=== PATIENT | female | born 1990 | race Caucasian/White ===

== ENCOUNTER 2025-03-24 12:58 | Emergency (ER) | payer OTHER, SELFPAY ==
[2025-03-24 13:01] VITALS: BP 141/76; PULSE 82; RESP 16; TEMP 36.1; O2SAT 97; BMI 37.0
--- NOTE | 2025-03-24 13:03 | ED_ITS ---
[facility] - General Adult General Chief complaint: Arrhythmia/Palpitations Stated complaint: Heart palpitation, difficult swallowing Time Seen by Provider: 03/24/25 14:58 Source: patient Mode of arrival: ambulatory Limitations: no limitations History of Present Illness ED Provider: Dr. Giang HPI narrative: 34-year-old female no medical history presented hospital today for evaluation of palpitation that is intermittent in nature. She is also stating te she has a sensation in her throat. Patient stated that she feels as something is getting caught in her throat. She has difficulty swallowing her pills at home. However she is able to eat food and drink water without any issues. She stated that her palpitation worsens when she is turns on her left side. In the keeps her up at nighttime therefore she presents to the ER for further evaluation. Denies any recent surgery, recent travel, not on any control currently. No chest pain at this time. Related Data Previous Rx's ?Medication ?Instructions ?Recorded omeprazole 20 mg capsule,delayed 20 mg PO DAILY 14 day s #14 caps 03/24/25 release Allergies Allergy/AdvReac Type Severity Reaction Status Date / Time No Known Allergies Allergy Verified 03/24/25 13:03 Review of Systems 2 Review of Systems: Pertinent review of systems as mentioned in HPI. All other system otherwise negative. [facility] Past Medical History [facility] Narrative: Medical history as mentioned in [facility] Social History Social History Advance Directives: No Advance Directives Information Provided: No Physical Exam ED Exam Exam: General: Pleasant, no distress, interacting appropriately Head: Normacephalic, atraumatic ENT: oral mucosa moist, neck supple, no tracheal deviation, no exudate on oropharynx, no tonsillitis sign Cardiovascular: regular rate, regular rhythm, no murmurs, rubbing, gallops Respiratory: CTAB, no wheeze, rales, rhonchi Neurological: Awake and alert, no facial droop noted Skin: Warm and dry Psychiatric: Appropriate mood and thoughts Vital Signs: Vital Signs - 24 hr 03/24/25 13:01 Temperature 97.0 F Pulse Rate 82 Respiratory Rate 16 Blood Pressure 141/76 H Pulse Oximetry 97 Oxygen Delivery Method Room Air BMI result Body Mass Index 37.0 Course Course Course Narrative: This is a rapid medical exam performed by Blu Aquino NP: Additional HPI, ROS, PE not included below will be deferred to primary provider. Patient is a 34-year-old female presenting to the ED with complaint of palpitations since last night which seem to improve when she gets up and walks around. Also complaining of feeling as though it is difficulty to swallow for a few days, did not start immediately after eating. Has appt with PCP Wed. Managing secretions in triage. Plan: EKG, labs Medical Decision Making Medical Decision Making [facility] Narrative: This is a 34-year-old female presented hospital today for evaluation of foreign object in throat sensation, and intermittent palpitation I reviewed patient's EKG. No sign of STEMI no sign of cardiac arrhythmia. Patient's troponin is negative here. Lab work is unremarkable and TSH is normal. The patient is low risk with a heart score. Patient is PERC out. We will plan to discharge patient at this time. We will trial her on a short course of omeprazole. The patient does have follow up with her primary care doctor on Tuesday. Encouraged her to ask about a Holter monitor to detect cardiac arrhythmia. We will give her GI referral for trouble swallowing. Patient will be discharged at this time. Differential Diagnosis Differential Diagnoses: The differential diagnosis associated with the presentation includes SVT, WPW, food bolus impaction Lab Data [facility] Lab Attestation statement: I reviewed the patient's lab results. 03/24/25 13:15 03/24/25 13:15 Labs: Lab Results 03/24/25 Range/Units 13:15 WBC 8.5 (4.8-10.8) X10*3/uL RBC 5.21 (4.20-5.50) X10*6/uL Hgb 15.2 (12.0-16.0) g/dl Hct 43.9 (37.0-47.0) % MCV 84.3 (80.0-98.0) fL MCH 29.2 (27.0-33.0) pg MCHC 34.6 (31.0-35.0) g/dl RDW 12.5 (11.0-16.0) % Plt Count 311 (160-400) X10*3/uL MPV 9.2 L (9.4-12.3) fL Immature Gran % (Auto) 0.1 (0.0-0.4) % Neut % (Auto) 42.5 L (45-73) % Lymph % (Auto) 49.3 H (20-40) % Mccormick % (Auto) 5.8 (2-11) % Eos % (Auto) 1.5 (0-4) % Baso % (Auto) 0.8 (0-2) % Lymph # (Auto) 4.2 (1.2-4.9) X10*3/uL Mccormick # (Auto) 0.5 (0.1-1.2) X10*3/uL Eos # (Auto) 0.1 (0.0-0.4) X10*3/uL Baso # (Auto) 0.1 (0.0-0.2) X10*3/uL Abs Immat Gran (auto) 0.01 (0.00-0.03) X10*3/uL Absolute Neuts (auto) 3.6 (2.0-8.3) x10*3/uL Absolute Nucleated RBC 0.000 (0.0-0.012) X10*3/uL Nucleated RBC % (auto) 0.0 (0.0-0.2) /100WBC PT 11.3 (10.9-12.4) SEC INR 1.0 (0.9-1.1) Sodium 139 (135-145) mmol/L Potassium 3.5 (3.3-5.1) mmol/L Chloride 106 (96-108) mmol/L Carbon Dioxide 24 (22-29) mmol/L Anion Gap 13 (12-20) BUN 11 (9-16) mg/dL Creatinine 0.79 (0.5-1.4) mg/dL Estim Creat Clear Calc 95.5 Estimated GFR > 60 Random Glucose 90 (60-115) mg/dL Calcium 10.0 (8.4-10.2) mg/dL Magnesium 2.1 (1.6-2.6) mg/dL Total Bilirubin 0.5 (0.0-1.0) mg/dL AST 26 (5-31) U/L ALT 30 (0-31) U/L Alkaline Phosphatase 97 (39-117) U/L Troponin I High Sens < 2.7 (<3.5-17.0) ng/L Total Protein 7.4 (6.5-8.0) g/dL Albumin 4.4 (3.5-5.0) g/dL TSH 2.30 (0.32-4.0) uIU/mL Beta HCG, Quant < 2 mIU/mL Independent Interpretation I performed an independent interpretation of an: EKG Discharge Plan Discharge Clinical Impression: Palpitations, Odynophagia Patient Disposition: Home, Self-Care Additional Instructions: EKG and tropnin are negative for any cardiac changes. Follow up with PCP for a Holter monitor to detect arrythmia. Follow up with GI doctor and inquire about an EGD scope if your throat sensation remains. If you can eat or swallow liquid return to the ED. Prescriptions: New omeprazole 20 mg capsule,delayed release(DR/EC) 20 mg PO DAILY 14 Days Qty: 14 0RF Referrals: [facility] [Provider Group, Gastroenterology] Print Language: Lebanese
--- NOTE | 2025-03-24 13:04 | ECG_ITS ---
Test Reason : PAPL Blood Pressure : */* mmHG Vent. Rate : 79 BPM Atrial Rate : 79 BPM P-R Int : 144 ms QRS Dur : 86 ms QT Int : 386 ms P-R-T Axes : 12 -17 -3 degrees QTcB Int : 442 ms Normal sinus rhythm Nonspecific ST and T wave abnormality Abnormal ECG No previous ECGs available Referred By: Faye Aquino Electronically Signed By: Senthil Cisneros
[2025-03-24 13:19] LABS: MANUAL DIFF FLAG NO
[2025-03-24 13:20] LABS: Hematocrit 43.9 % (37.0-47.0); Hemoglobin 15.2 g/dl (12.0-16.0); Imm Gran Abs Auto 0.01 X10*3/uL (0.00-0.03); Imm Gran Pct Auto 0.1 % (0.0-0.4); Lymphocytes Absolute Auto 4.2 X10*3/uL (1.2-4.9); Mean Corpuscular HGB Conc 34.6 g/dl (31.0-35.0); Mean Corpuscular Hemoglobin 29.2 pg (27.0-33.0); Mean Corpuscular Volume 84.3 fL (80.0-98.0); NRBC Abs Auto 0.000 X10*3/uL (0.0-0.012); NRBC Pct Auto 0.0 /100WBC (0.0-0.2); Platelet Count 311 X10*3/uL (160-400); Red Blood Count 5.21 X10*6/uL (4.20-5.50); White Blood Count 8.5 X10*3/uL (4.8-10.8)
[2025-03-24 13:26] LABS: INTERNATIONAL NORM RATIO 1.0 (0.9-1.1); Prothrombin Time 11.3 SEC (10.9-12.4)
[2025-03-24 13:50] LABS: Alanine Aminotransferase 30 U/L (0-31); Albumin Level 4.4 g/dL (3.5-5.0); Alkaline Phosphatase 97 U/L (39-117); Anion Gap 13 (12-20); Aspartate Amino Transferase 26 U/L (5-31); Blood Urea Nitrogen 11 mg/dL (9-16); Calcium 10.0 mg/dL (8.4-10.2); Carbon Dioxide 24 mmol/L (22-29); Chloride 106 mmol/L (96-108); Creatinine Clr Calc Pharmacy 95.5; Estimated Glomerular Filt Rate > 60; Magnesium 2.1 mg/dL (1.6-2.6); Potassium 3.5 mmol/L (3.3-5.1); Sodium 139 mmol/L (135-145); Total Protein 7.4 g/dL (6.5-8.0)
[2025-03-24 14:14] LABS: Troponin-I High Sensitivity < 2.7 ng/L (<3.5-17.0)
--- OUTSIDE RECORDS SUMMARY | 2025-03-24 15:30 | XMS_ITS | Encounter Summary ---
Author Organization [facility] Address [address] [place] [address] Care Team Providers Care Academy Director Name Role Phone Susan Bashir MD Primary Care Provider Kian Bloom MD Primary Care Provider [phone] Reason for Visit * Reason Comments E-prescribe Rx Request Encounter Details Date Type Department Care Team Description 09/22/2019 Refill Adult Medicine [address] [id number] Susan Bashir MD E-prescribe Rx Request Social History Tobacco Use Types Packs/Day Years Used Date Smoking Tobacco: Former Cigarettes 0.3 1 Smokeless Tobacco: Never Alcohol Use Standard Drinks/Week Comments Yes 0 (1 standard drink = 0.6 oz pure alcohol) once very few months, 1-2 drinks Sex Assigned at Date Recorded Female 04/17/2021 9:09 AM E DT Job Start Date Occupation Industry Not on file Not on file Not on file documented as of this encounter Miscellaneous Notes * Telephone Encounter - Lashaun Jonas - 09/24/2019 2:29 PM EDT Patient would like script to be: E-PRESCRIBED/FAXED TO PHARMACY WHEN WAS THE PATIENT'S LAST APPOINTMENT IN ADULT MEDICINE? 08/08/19 WHEN WAS THE LAST TIME THE PATIENT SAW THEIR PCP? 09/05/18 Does patient have an upcoming appointment? no (THE MEDICATION REQUESTED IS ON THE MED LIST ABOVE) All of the medications requested were on the CURRENT MEDS list Did you check the Pharmacy information above?: YES Patient wants: 30 -day supply Is this a mail order prescription request ? NO If the refill is from a FAXED refill request what is the RX # listed on the fax? N/A Patients current insurance carrier is: Payor: [employer] / Plan: PPO $0 [employer] [id number] / Product Type: PPO [id number] documented in this encounter Plan of Treatment Not on file documented as of this encounter Visit Diagnoses Not on filedocumented in this encounter Care Teams Academy Director Relationship Specialty Start Date End Date Susan Bashir MD PCP - General Internal Medicine 10/26/12 03/22/22 Kian June MD [address] [place] [id number] PCP - General Internal Medicine 03/23/22 documented as of this encounter
--- OUTSIDE RECORDS SUMMARY | 2025-03-24 15:30 | XMS_ITS | Clinical Summary ---
Author Organization [facility] Address [address] [place] [address] Care Team Providers Care Security Analyst Name Role Phone Susan Bashir MD Primary Care Provider [phone] Medications No known medications Active Problems No known active problems Social History Tobacco Use Types Packs/Day Years Used Date Smoking Tobacco: Never Assessed Sex and Gender Information Value Date Recorded Sex Assigned at Not on file Gender Identity Not on file Sexual Orientation Not on file Last Filed Vital Signs Vital Sign Reading Time Taken Comments Blood Pressure 111/63 02/22/2017 2:10 PM EDT Pulse 84 02/22/2017 2:10 PM EDT Temperature - - Respiratory Rate - - Oxygen Saturation - - Inhaled Oxygen Concentration - - Weight 69.9 kg (154 lb 3.2 oz) 02/22/2017 2:10 P M EDT Height 151.1 cm (4' 11.5 ) 02/22/2017 2:10 PM ED T Body Mass Index 30.62 02/22/2017 2:10 PM EDT Plan of Treatment Health Maintenance Due Date Last Done Comments Hepatitis B Vaccines (1 of 3 - 3-dose series) 1992 Hepatitis C Screening 1992 COVID-19 Vaccine (#1) 01/16/1993 Depression Screening 2004 Preventative Health Evaluation 2010 Cervical Cancer Screening (P ap Smear) 2013 DTap / Tdap / Td (2 - Td or Tdap) 01/02/2024 014 Influenza Vaccine (#1) 2025 Pneumococcal Vaccine Aged Out No long er eligible based on patient's age to complete this topic RSV Ped < 20 months Aged Out No longe r eligible based on patient's age to complete this topic Care Teams Security Analyst Relationship Specialty Start Date End Date Susan Bashir MD PCP - General Internal Medicine 02/18/17
--- OUTSIDE RECORDS SUMMARY | 2025-03-24 15:30 | XMS_ITS | Clinical Summary ---
Author Organization [address] Address [address] [place] [phone] Phone Care Team Providers Care Senior Sustainability Consultant Name Role Phone Kian June MD Primary Care Provider [phone] Allergies Active Allergy Reactions Criticality Noted Date Comments Cat Dander 05/03/2012 House Dust 05/03/2012 Medications albuterol HFA (PROAIR HFA ; PROVENTIL HFA ; VENTOLIN HFA) 90 mcg/actuation inhaler Inhale 2 puffs by mouth every 4 (four) hours if needed for wheezing. 6.7 g 1 01/10/2025 Active loratadine (CLARITIN) 10 mg tablet Take 1 tablet (10 mg total) by mouth 1 (one) time each day. 60 tablet 1 01/10/2025 Active hydrOXYzine HCL (ATARAX) 25 mg tablet TAKE 1 TABLET (25 MG TOTAL) BY MOUTH 3 TIMES A DAY NEEDED FOR ANXIETY 270 tablet 1 02/13/2025 Active Active Problems Problem Noted Date Diagnosed Date Migraine without status migrainosus, not intract able 10/10/2019 PCOS (polycystic ovarian syndrome) 10/10/2019 Decreased platelet count (CMS/HCC V24) 7 Anovulatory cycle 06/03/2015 Hirsutism 06/03/2015 Mild intermittent asthma 05/06/2015 Allergic rhinitis 04/28/2012 Encounters Date Type Department Care Team Description 01/10/2025 9:00 AM EDT Office Visit Adult Medicine [place] [address] [phone] Dominique Bauer, RILEY Annual physical exam (Primary Dx); Anxiety; PCOS (polycystic ovarian syndrome); Allergic rhinitis, unspecified seasonality, unspecified trigger; Skin lesion; Intermittent palpitations; Encounter for screening for cardiovascular disorders; Need for hepatitis C screening test from Last 3 Months Immunizations Name Administration Dates Next Due Influenza trivalent, with pr eservative (Fluzone; Afluria) 6mo and older 05/06/2015 MMR, measles mumps and rubel la Live (Priorix; M-M-R II) 12mo and older 12/15/2018 MMRV, measles mumps rubella and varicella live (Proquad) 4yo to less than 7yo 12/15/2018 Tdap Tetanus diptheria acell ular pertussis (Boostrix; Adacel) 7yo and older 01/01/2014 Surgical History Surgery Date Site/Laterality Comments OTHER SURGICAL HISTORY PROCEDURE: DENIES PREVIOUS SURGERY Medical History Medical History Date Comments Asthma DX:Asthma Sinusitis DX:Sinusitis Allergic rhinitis 04/28/2012 DX:Allergic rh initis Decreased platelet count (CMS/HCC V24) 02/08/2017 DX:Decreased platelet count ([facility]) Family History Medical History Relation Name Comments Diabetes Father depression Other: anxiety Mother hx GDM Stroke Mother Breast cancer Neg Hx Colon cancer Neg Hx Heart attack Neg Hx Ovarian cancer Neg Hx Uterine cancer Neg Hx Relation Name Status Comments Brother 1 Alive x2 Brother 2 Alive Father Alive dm Mother Alive Sister 1 Alive x3 Sister 2 Alive PCOS, half-sist er Sister 3 Alive Social History Tobacco Use Types Packs/Day Years Used Date Smoking Tobacco: Former Cigarettes Smokeless Tobacco: Never Tobacco Cessation:Counseling Given: Not Answered Alcohol Use Standard Drinks/Week Comments Yes 0 (1 standard drink = 0.6 oz pur e alcohol) Housing Instability Answer Date Recorde d Are you worried that in the next 2 months you may not have stable housing? No 09/27/2024 Food Access & Nutrition Answer Date Rec orded Do you have access to a vari ety of food including fruits and vegetables? Yes 09/27/2024 Access to Healthcare Answer Date Record ed Within the last 3 months, ho w many times did you visit the emergency department for your medical care? 1 09/27/2024 Health Literacy Answer Date Recorded How often do you need to hav e someone help you when you read instructions, pamphlets, or other written material from your doctor or pharmacy? Never 09/27/2024 Caregiver: How often do you need to have someone help you when you read instructions, pamphlets, or other written material from your doctor or pharmacy? Not on file 09/27/2024 Financial Risk Answer Date Recorded How hard is it for you to pa y for the very basics like food, housing, medical care, and air conditioning / heating? Patient declined 09/27/2024 Transportation Answer Date Recorded Has the lack of transportati on kept you from meetings, work, or from getting things needed for daily living? No Has the lack of transportati on kept you from medical appointments or from getting medications? No 09/27/2024 Social Isolation Answer Date Recorded How often do you feel lonely or isolated from th ose around you? Never 09/27/2024 Food Risk Answer Date Recorded Within the past 12 months we worried whether our food would run out before we got money to buy more. Never true 09/27/2024 Within the past 12 months th e food we bought just didn't last and we didn't have money to get more. Never true 09/27/2024 Dependent Care Answer Date Recorded Do you need help finding or paying for care for your loved ones. For example, childcare provider or elderly care for an older adult? No 09/27/2024 Education Answer Date Recorded Do you think completing more education or training, like finishing a GED, going to college, or learning a trade, would be helpful for you? Yes 09/27/2024 Employment and Income Answer Date Recor ded During the last four weeks, have you been actively looking for work? Yes 09/27/2024 Living Situation Answer Date Recorded What is your living situation? 0 09/27/2024 Comments No Sex and Gender Information Value Date Recorded Sex Assigned at Female 09/27/2024 9:04 AM EDT Legal Sex Female 2:16 AM EST Gender Identity Female 09/27/2024 9:04 AM EDT Sexual Orientation Straight 09/27/2024 9: 04 AM EDT Obstetrics History Last Filed Vital Signs Vital Sign Reading Time Taken Comments Blood Pressure 108/72 01/10/2025 8:55 AM EDT Pulse 88 01/10/2025 8:55 AM EDT Temperature 36.2 C (97.1 F) 01/10/2025 8:55 AM EDT Respiratory Rate 20 01/10/2025 8:55 AM EDT Oxygen Saturation - - Inhaled Oxygen Concentration - - Weight 85.7 kg (189 lb) 01/10/2025 8:55 AM EDT Height 151.8 cm (4' 11.75 ) 01/10/2025 8:55 AM E DT Body Mass Index 37.22 01/10/2025 8:55 AM EDT Plan of Treatment Upcoming Encounters Date Type Department Care Team (Late st Contact Info) Description 03/25/2025 8:30 AM EDT Appointment [facility] [address] [place] [phone] 04/02/2025 1:15 PM EDT Office Visit Adult Medicine [facility] [place] [address] [place] [address] Dominique Bauer NP [address] [place] [phone] 07/18/2025 9:30 AM EST Consult Bariatric Surgery - [place] [address] [facility] [address] [place] [phone] Ewa Clement, DAMIR [address] [place] [phone] Health Maintenance Due Date Last Done Comments Cervical Cancer Screening: Pap Smear 09/13/2021 09/13/2018, 09/13/2018, 09/13/2018 Influenza Vaccine (#1) 2025 05/06/2015 Social Influencers of Health Screening 09/27/2025 09/27/2024 Cholesterol Screening (Lipid Panel) 01/10/2030 01/10/2025, 01/10/2023 DTaP,Tdap,and Td Vaccines (3 - Td or Tdap) 12/20/2034 12/20/2024, 01/01/2014 RSV Immunization Adult Patients (1 - 1-dose 75+ series) 2067 HIV Screening Completed 02/18/2017 Varicella Vaccines Aged Out 12/15/2018 No longer eligible based on patient's age to complete this topic COVID-19 Vaccine Discontinued 08/02/2021, 07/05/2021 MMR Vaccines Aged Out 10/09/2024, 12/15/2018, 12/15/2018 No longer eligible based on patient's age to complete this topic Hepatitis B Vaccines Completed 12/20/2024, 10/09/2024 Depression Screening Completed 01/10/2025 Hepatitis C Screening Completed 01/10/2025 HIB Vaccines Aged Out No longer eligi ble based on patient's age to complete this topic HPV Vaccines Aged Out No longer eligi ble based on patient's age to complete this topic Hepatitis A Vaccines Aged Out No long er eligible based on patient's age to complete this topic IPV Vaccines Aged Out No longer eligi ble based on patient's age to complete this topic Meningococcal ACWY Vaccine Aged Out N o longer eligible based on patient's age to complete this topic Meningococcal B Vaccine Aged Out No l onger eligible based on patient's age to complete this topic Pneumococcal Vaccine: Pediatrics (0 to 5 Years) and At-Risk Patients (6 to 49 Years) Discontinued RSV Immunization Patients Under 20 months Aged Out No longer eligible based on patient's age to complete this topic Procedures Procedure Name Priority Date/Time Associated Diagnosis Comments CBC WITH AUTO DIFFERENTIAL Routine 01/10/2025 9:59 AM EDT Annual physical exam Encounter for screening for cardiovascular disorders Need for hepatitis C screening test COMPREHENSIVE METABOLIC PANEL Routine 01/10/2025 9:59 AM EDT Annual physical exam Encounter for screening for cardiovascular disorders Need for hepatitis C screening test LIPID PANEL WITH REFLEX TO DIRECT LDL Routine 01/10/2025 9:59 AM EDT Encounter for screening for cardiovascular disorders THYROID STIMULATING HORMONE WITH REFLEX TO FREE T4 AND FREE T3 Routine 01/10/2025 9:59 AM EDT Annual physical exam Encounter for screening for cardiovascular disorders Need for hepatitis C screening test CBC AND DIFFERENTIAL Routine 01/10/2025 9:59 AM EDT Annual physical exam Encounter for screening for cardiovascular disorders Need for hepatitis C screening test HEMOGLOBIN A1C Routine 01/10/2025 9:59 AM EDT Annual physical exam Encounter for screening for cardiovascular disorders Need for hepatitis C screening test HEPATITIS C ANTIBODY Routine 01/10/2025 9:59 AM EDT Need for hepatitis C screening test PAP SMEAR Routine 09/13/2018 HM HIV SCREENING Routine 02/18/2017 from Last 3 Months or Most Recently Relevant to Health Maintenance Results * Hepatitis C antibody (01/10/2025 9:59 AM EDT) Pathologist [facility] Hepatitis C Antibody Negative Negative LAB CHEMISTRY METHOD 01/10/2025 5:40 PM EDT [facility] Blood Venous blood specimen / Unknown Venipuncture / Unknown 01/10/2025 9:59 AM EDT 01/10/2025 9:59 AM EDT Dominique Bauer CRACKING MACHINE OPERATOR LAB BLOOD ORDERABLES Final R esult Performing Organization Address City/[facility] Co de Phone Number [facility] [address] [place] [address], [place] [phone] * Thyroid stimulating hormone with reflex to free t4 and free t3 (01/10/2025 9:59 AM EDT) [facility] TSH 1.43 0.40 - 4.00 mcIU/mL LAB CHEMISTRY METHOD 01/10/2025 7:22 PM EDT [facility] Blood Venous blood specimen / Unknown Venipuncture / Unknown 01/10/2025 9:59 AM EDT 01/10/2025 9:59 AM EDT Dominique Bauer CRACKING MACHINE OPERATOR LAB BLOOD ORDERABLES Final R esult [facility] [address] [place] [address], [place] [phone] * (ABNORMAL) Lipid panel with reflex to direct LDL (01/10/2025 9:59 AM EDT) [facility] Cholesterol 249(H) 0 - 200 mg/dL LAB CHEMISTRY METHOD 01/10/2025 4:09 PM EDT [facility] Triglycerides 320(H) 0 - 150 mg/dL LAB CHEMISTRY METHOD 01/10/2025 4:09 PM EDT [facility] HDL 35(L) >=40 mg/dL LAB CHEMISTRY METHOD 01/10/2025 4:09 PM EDT [facility] LDL Calculated 150(H) 0 - 100 mg/dL LAB CHEMISTRY METHOD 01/10/2025 4:09 PM EDT [facility] VLDL Cholesterol Spike 64 mg/dL LAB CHEMISTRY METHOD 01/10/2025 4:09 PM EDT [facility] Non HDL Chol. (LDL+VLDL) 214(H) <145 mg/dL LAB CHEMISTRY METHOD 01/10/2025 4:09 PM EDT [facility] Chol/HDL Ratio 7.1(H) 0.0 - 4.4 LAB CHEMISTRY METHOD 01/10/2025 4:09 PM T [facility] Blood Venous blood specimen / Unknown Venipuncture / Unknown 01/10/2025 9:59 AM EDT 01/10/2025 9:59 AM EDT us Dominique Bauer CRACKING MACHINE OPERATOR LAB BLOOD ORDERABLES Final R esult [facility] [address] [place] [address], [place] [phone] * (ABNORMAL) CBC auto differential (01/10/2025 9:59 AM EDT) [facility] WBC 8.2 4.8 - 10.8 K/mcL LAB [facility]EMETOLOGY [facility] RBC 4.90(H) 3.80 - 4.80 M/mcL LAB HEMETOLOGY METHOD [facility]/10/2025 12:[facility] Hemoglobin 14.3 11.5 - 16.0 g/dL LAB HEMETOLOGY METHOD 01/10/2025 12:32 PM [facility] Hematocrit 43.0 35.0 - 47.0 % LAB HEMETOLOGY METHOD 01/10/2025 12:[facility] MCV 88.7 79.0 - 98.0 FL LAB HEMETOLOGY METHOD 01/10/2025 12:32 PM [facility] MCH 29.5 27.0 - 32.0 pcg LAB HEMETOLOGY METHOD 01/10/2025 12:32 PM [facility] MCHC 33.3 32.0 - 37.0 g/dL LAB HEMETOLOGY METHOD 01/10/2025 12:32 PM [facility] RDW 12.7 11.0 - 15.0 % LAB HEMETOLOGY METHOD 01/10/2025 12:32 PM [facility] Platelets 328 130 - 400 K/mcL LAB HEMETOLOGY METHOD 01/10/2025 12:32 PM [facility] MPV 9.4 7.0 - 11.0 FL LAB HEMETOLOGY METHOD 01/10/2025 12:32 PM [facility] NRBC 0.0 <1.0 % LAB HEMETOLOGY METHOD 01/10/2025 12:32 PM [facility] NRBC Absolute 0.00 <0.10 K/mcL LAB HEMETOLOGY METHOD 01/10/2025 12:32 PM [facility] Neutrophils Relative 48.0 % LAB HEMETOLOGY METHOD 01/10/2025 12:32 PM EDT [facility] Lymphocytes Relative 42.5 % LAB HEMETOLOGY METHOD 01/10/2025 12:32 PM [facility] Monocytes Relative 6.0 % LAB HEMETOLOGY METHOD 01/10/2025 12:32 PM [facility] Eosinophils Relative 2.2 % LAB HEMETOLOGY METHOD 01/10/2025 12:32 PM [facility] Basophils Relative 0.9 % LAB HEMETOLOGY METHOD 01/10/2025 12:32 PM [facility] Immature Granulocytes Relative 0.4 % LAB HEMETOLOGY METHOD 01/10/2025 12:32 PM [facility] Neutrophils Absolute 3.93 1.50 - 7.00 K/mcL LAB HEMETOLOGY METHOD 01/10/2025 12:32 PM [facility] Lymphocytes Absolute 3.47 1.00 - 5.00 K/mcL LAB HEMETOLOGY METHOD 01/10/2025 12:32 PM [facility] Monocytes Absolute 0.49 0.20 - 1.00 K/mcL LAB HEMETOLOGY METHOD 01/10/2025 12:32 PM [facility] Eosinophils Absolute 0.18 0.00 - 0.50 K/mcL LAB HEMETOLOGY METHOD 01/10/2025 12:32 PM [facility] Basophils Absolute 0.07 0.00 - 0.20 K/mcL LAB HEMETOLOGY METHOD 01/10/2025 12:32 PM [facility] Immature Granulocytes Absolute 0.03 0.00 - 0.03 K/mcL LAB HEMETOLOGY METHOD 01/10/2025 12:32 PM [facility] Blood Venous blood specimen / Unknown Venipuncture / Unknown 01/10/2025 9:59 AM EDT 01/10/2025 9:59 AM EDT Dominique Bauer CRACKING MACHINE OPERATOR LAB BLOOD ORDERABLES Final R esult [facility] [address] [place] [address], [place] [phone] * Hemoglobin A1c (01/10/2025 9:59 AM EDT) [facility] Hemoglobin A1C 5.5 <6.5 % LAB CHEMISTRY METHOD 01/10/2025 3:09 PM EDT [facility] Mean Bld Glu Estim. 111 mg/dL LAB CHEMISTRY METHOD 01/10/2025 3:09 PM EDT [facility] Blood Venous blood specimen / Unknown Venipuncture / Unknown 01/10/2025 9:59 AM EDT 01/10/2025 9:59 AM EDT Dominique Bauer CRACKING MACHINE OPERATOR LAB BLOOD ORDERABLES Final R esult [facility] [address] [place] [address], [place] [phone] * (ABNORMAL) Comprehensive metabolic panel (01/10/2025 9:59 AM EDT) [facility] Sodium 139 133 - 145 mmol/L LAB CHEMISTRY METHOD 01/10/2025 4:09 PM EDT [facility] Potassium 3.8 3.5 - 5.5 mmol/L LAB CHEMISTRY METHOD 01/10/2025 4:09 PM EDT [facility] Chloride 105 96 - 110 mmol/L LAB CHEMISTRY METHOD 01/10/2025 4:09 PM EDT [facility] CO2 28 21 - 32 mmol/L LAB CHEMISTRY METHOD 01/10/2025 4:09 PM T [facility] Anion Gap 6 3 - 11 LAB CHEMISTRY METHOD 01/10/2025 4:09 PM EDT [facility] Glucose 102(H) 70 - 100 mg/dL LAB CHEMISTRY METHOD 01/10/2025 4:09 PM [facility] BUN 13 5 - 25 mg/dL LAB CHEMISTRY METHOD 01/10/2025 4:09 PM [facility] Creatinine 0.78 0.50 - 1.10 mg/dL LAB CHEMISTRY METHOD 01/10/2025 4:09 PM [facility] eGFR 104 >=60 mL/min/1. 73m2 LAB CHEMISTRY METHOD 01/10/2025 4:09 PM [facility] Comment:Calculation based on the Chronic Kidney Disease Epidemiology Collaboration (CKD-EPI) equation refit without adjustment for race. BUN/Creatinine Ratio 16.7 LAB CHEMISTRY METHOD 01/10/2025 4:09 PM [facility] Calcium 9.3 8.5 - 10.5 mg/dL LAB CHEMISTRY METHOD 01/10/2025 4:09 PM [facility] AST (SGOT) 19 10 - 42 unit/L LAB CHEMISTRY METHOD 01/10/2025 4:09 PM [facility] ALT (SGPT) 34 10 - 60 unit/L LAB CHEMISTRY METHOD 01/10/2025 4:09 PM [facility] Alkaline Phosphatase 106 42 - 121 unit/L LAB CHEMISTRY METHOD 01/10/2025 4:09 PM [facility] Total Protein 6.7 6.0 - 8.0 g/dL LAB CHEMISTRY METHOD 01/10/2025 4:09 PM [facility] Albumin 3.6 3.2 - 5.0 g/dL LAB CHEMISTRY METHOD 01/10/2025 4:09 PM [facility] Total Bilirubin 0.5 0.0 - 1.4 mg/dL LAB CHEMISTRY METHOD 01/10/2025 4:09 PM [facility] Blood Venous blood specimen / Unknown Venipuncture / Unknown 01/10/2025 9:59 AM EDT 01/10/2025 9:59 AM EDT Dominique Bauer CRACKING MACHINE OPERATOR LAB BLOOD ORDERABLES Final R esult [facility]) [facility] [address] [place] [address], * Pap smear (09/13/2018) 09/13/2018 Narrative HISTORICAL TESTING LAB RESULTING AGENCY - 09/26/2018 10:48 AM EDT [id number] THINPREP PAP, IMAGED: ATYPICAL SQUAMOUS CELLS OF UNDETERMINED SIGNIFICANCE (ASCUS) . BLESSING BENNETT(ASCP) (CASE SCREENED 09 18 2018) DARNELL VEE M.D. , PATHOLOGIST (CASE ELECTRONICALLY SIGNED 09 26 2018) RESULT OF APTIMA HIGH RISK HPV ASSAY: HIGH RISK HPV: NEGATIVE (SEROTYPES 16,18,31,33,35,39,45,51,52,56,58,59,66,68) COMPLETED ON 2018-09-25 ADEQUACY: SATISFACTORY ENDOCERVICAL/TRANSFORMATION ZONE COMPONENT ABSENT. SOURCE: THINPREP PAP HPV IF ASCUS, CERVICAL, IMAGED CLINICAL INFORMATION: HPV IF DIAGNOSIS OF ASCUS. PAP HX POS [Z12.4, Z01.419] us Kimmy CORBETTM LAB CYTOLOGY ORDERABLES Final R esult HISTORICAL TESTING LAB RESULTING AGENCY * HIV Screening (02/18/2017) HIV Screening abstracted Historical Provider HEALTH MAINTENANCE Final Result from Last 3 Months or Most Recently Relevant to Health Maintenance Insurance [facility] Care Teams Senior Sustainability Consultant Relationship Specialty Start Date End Date Kian June MD [address] [place] [address] PCP - General Internal Medicine 03/23/22
--- OUTSIDE RECORDS SUMMARY | 2025-03-24 15:30 | XMS_ITS | Encounter Summary ---
Author Organization [facility] Address [address] [place] [address] Care Team Providers Care Non Profit Financial Controller Name Role Phone Susan Bashir MD Primary Care Provider Kian Bloom MD Primary Care Provider [phone] Encounter Details Date Type Department Care Team Description 08/09/2019 Transition Lead Report Medical Records [address] [place] [address] Jackie Ann MD Social History Tobacco Use Types Packs/Day Years [...] on file documented as of this encounter Plan of Treatment Not on file documented as of this encounter Visit Diagnoses Not on filedocumented in this encounter Care Teams Non Profit Financial Controller Relationship Specialty Start Date End Date Susan Bashir MD PCP - General Internal Medicine 10/26/12 03/22/22 Kian June MD [address] [place] [phone] PCP - General Internal Medicine 03/23/22 documented as of this encounter
--- OUTSIDE RECORDS SUMMARY | 2025-03-24 15:30 | XMS_ITS | Encounter Summary ---
Author Organization [facility] Address [address] [place] [address] Care Team Providers Care Sample Collector Name Role Phone Kian June MD Primary Care Provider [phone] Reason for Visit * Reason Onset Date Comments medication problems 08/04/2022 Encounter Details Date Type Department Care Team Description 08/04/2022 Telephone Adult Medicine [address] [address] Kian June MD [address] [place] [phone] medication problems Social History Tobacco Use Types Packs/Day [...] file Not on file Not on file COVID-19 Exposure Response Date Recorded In the last 10 days, have yo u been in contact with someone who was confirmed or suspected to have Coronavirus/COVID-19? No / Unsure 07/13/2022 9:39 AM EST documented as of this encounter Miscellaneous Notes * Telephone Encounter - Jaymie Raza - 08/06/2022 2:31 PM EST Rx sent, patient has been notified * Telephone Encounter - Kian June MD - 08/06/2022 2:04 PM EST Prescription sent for albuterol inhaler * Telephone Encounter - Meena Coker R.N. - 08/06/2022 1:55 PM EST Called and spoke with patient Pt sts she experiences asthma exacerbation fall/winter time Which causes her to use her inhaler more often She attributes it to the cold weather/change in season - happens to her yearly Pt is currently not experiencing any acute sym Pt requesting a refill of albuterol * Telephone Encounter - Valorie Taylor R.N. - 08/05/2022 2:52 PM EST I left a message for the patient to return my call. * Telephone Encounter - Girish Delgadillo - 08/04/2022 4:57 PM EST Who is calling? The patient Name of the medication ALBUTEROL SULFATE 108 (90 Base) MCG/ACT Aero Soln What is the specific problem or interaction? The patient is calling back about the message from 07/27/2022 regarding this medication. She says she is using the albuterol more because in the winter shegets a bit wheezy with the dust. As a result, she has run out of uses for the albuterol she has. Please advise. If the patient is having a problem with taking the med - how long has the problem been going on? N/A documented in this encounter Plan of Treatment Not on file documented as of this encounter Visit Diagnoses Not on filedocumented in this encounter Care Teams Sample Collector Relationship Specialty Start Date End Date Kian June MD [address] [place] [id number] PCP - General Internal Medicine 03/23/22 documented as of this encounter
--- OUTSIDE RECORDS SUMMARY | 2025-03-24 15:30 | XMS_ITS | Encounter Summary ---
Author Organization [facility] Address [address] [place] [address] Care Team Providers Care Gas Or Petroleum Operator Name Role Phone Susan Bashir MD Primary Care Provider Kian Bloom MD Primary Care Provider [phone] Reason for Visit * Reason Comments E-prescribe Rx Request Encounter Details Date Type Department Care Team Description 06/16/2021 Refill Adult Medicine [address] [address] Susan Bashir MD E-prescribe Rx Request Social [...] encounter Miscellaneous Notes * Telephone Encounter - Liya Richard - 06/16/2021 11:16 AM EST Patient would like script to be: E-PRESCRIBED/FAXED TO PHARMACY WHEN WAS THE PATIENT'S LAST APPOINTMENT IN ADULT MEDICINE? 12-18- WHEN WAS THE LAST TIME THE PATIENT SAW THEIR PCP? N/a Does patient have an upcoming appointment? No-no answer, no voicemail documented x2 (Please verify telephone contact #'s at next phone call) (THE MEDICATION REQUESTED IS ON THE MED [...] Payor: JOHANNE/MA[employer] POS / Plan: PPO $0 Tappr [id number] / Product Type: PPO [id number] documented in this encounter Plan of Treatment Not on file documented as of this encounter Visit Diagnoses Not on filedocumented in this encounter Care Teams Gas Or Petroleum Operator Relationship Specialty Start Date End Date Susan Bashir MD PCP - General Internal Medicine 10/26/12 03/22/22 Kian June MD [address] [place] [id number] PCP - General Internal Medicine 03/23/22 documented as of this encounter
--- OUTSIDE RECORDS SUMMARY | 2025-03-24 15:30 | XMS_ITS | Encounter Summary ---
Author Organization [facility] Address [address] [place] [address] Care Team Providers Care Coke Burner Name Role Phone Susan Bashir MD Primary Care Provider Kian Bloom MD Primary Care Provider Encounter Details Date Type Department Care Team Description 02/22/2017 Bundle Helper Report Medical Records [address] [place] [address] Matthew Peterson MD Social History Tobacco Use Types Packs/Day Years Used Date Smoking Tobacco: Former Cigarettes 0.3 1 Smokeless Tobacco: Never Alcohol Use Standard Drinks/Week Comments Yes 0 (1 standard drink = 0.6 oz pur e alcohol) occ Sex Assigned at Date Recorded Female 04/17/2021 9:09 AM E DT Job Start Date Occupation Industry Not on file Not on file Not on file documented as of this encounter Plan of Treatment Not on file documented as of this encounter Visit Diagnoses Not on filedocumented in this encounter Care Teams Coke Burner Relationship Specialty Start Date End Date Susan Bashir MD PCP - General Internal Medicine 10/26/12 03/22/22 Kian June MD [address], [place] [id number] PCP - General Internal Medicine 03/23/22 documented as of this encounter
--- OUTSIDE RECORDS SUMMARY | 2025-03-24 15:30 | XMS_ITS | Encounter Summary ---
Author Organization [facility] Address [address] [place] [address] Care Team Providers Care Philosophy Faculty Member Name Role Phone Susan Bashir MD Primary Care Provider Kian Bloom MD Primary Care Provider [phone] Encounter Details Date Type Department Care Team Description 08/29/2020 Old Medical Records Medical Records [address] [place] [id number] Jackie Ann MD Social History Tobacco Use [...] on filedocumented in this encounter Care Teams Philosophy Faculty Member Relationship Specialty Start Date End Date Susan Bashir MD PCP - General Internal Medicine 10/26/12 03/22/22 Kian June MD [address] [place] [phone] PCP - General Internal Medicine 03/23/22 documented as of this encounter
--- OUTSIDE RECORDS SUMMARY | 2025-03-24 15:30 | XMS_ITS | Encounter Summary ---
Author Organization [facility] Address [address] [place] [address] Care Team Providers Care Senior Net Software Developer Name Role Phone Susan Bashir MD Primary Care Provider Kian Bloom MD Primary Care Provider [phone] Encounter Details Date Type Department Care Team Description 04/30/2021 Telephone Adult Medicine [address] [address] Giovani Garcia FNP [address] [place] [id number] Social History Tobacco Use Types Packs/Day Years [...] Exposure Response Date Recorded In the last month, have you been in contact with someone who was confirmed or suspected to have Coronavirus / COVID-19? No / Unsure 04/20/2021 12:10 PM EDT documented as of this encounter Miscellaneous Notes * Telephone Encounter - SAVI Reyes, MIKI - 04/30/2021 9:29 AM EDT Please put this patient back down to see me on June 04 at 1 PM for follow-up Thank you JORJE Reyes documented in this encounter Plan of Treatment Not on file documented as of this encounter Visit Diagnoses Not on filedocumented in this encounter Care Teams Senior Net Software Developer Relationship Specialty Start Date End Date Susan Bashir MD PCP - General Internal Medicine 10/26/12 03/22/22 Kian June MD [address] [place] [id number] PCP - General Internal Medicine 03/23/22 documented as of this encounter
--- OUTSIDE RECORDS SUMMARY | 2025-03-24 15:30 | XMS_ITS | Encounter Summary ---
Author Organization [facility] Address [address] [place] [address] Care Team Providers Care Practice Assistant Name Role Phone Susan Bashir MD Primary Care Provider Kian Bloom MD Primary Care Provider [phone] Encounter Details Date Type Department Care Team Description 08/25/2015 Pt. Non Urgent Medical Question OBGYN - [place] [address] [place] [address] Krystina Morrison CNM Social History Tobacco Use Types Packs/Day Years [...] on file documented as of this encounter Progress Notes * Miguel Angel Christian R.N. - 08/26/2015 8:39 AM ESTFrom: Telma Bright To: Krystina Morrison CNM Sent: 08/25/2015 5:24 PM EST Subject: Test results Antony Flaherty I'm happy to hear my test came back normal, but I wanted you too know I stopped taking the control because I had bad side effects. I also found out my older sister has polycystic ovarian Syndrome as well. Her doctor told her she won't be able to conceive on her own and I'm afraid ifI wait I won't be able to either. Is there anything I can do now to help with fertility? Anything you can suggest and we can try to work with or something over the counter? documented in this encounter Plan of Treatment Not on file documented as of this encounter Visit Diagnoses Not on filedocumented in this encounter Care Teams Practice Assistant Relationship Specialty Start Date End Date Susan Bashir MD PCP - General Internal Medicine 10/26/12 03/22/22 Kian June MD [address] [place] [id number] PCP - General Internal Medicine 03/23/22 documented as of this encounter
--- NOTE | 2025-03-24 15:37 | PC.NURSE ---
Pt in 13H. Work up and eval primarily completed upon arrival and Pt cleared for d/c prior to this RNs initial meeting of Pt. Pt presents as A&Ox3 Skin is warm and dry Breaths and speech are slow, even, and unlabored. Pts disposition is bright. She offers no complaints at this time. NAD noted. Pt declines VS assessment at d/c.
[2025-03-24 15:40] VITALS: BP 141/76; PULSE 82; RESP 16; TEMP 36.1; O2SAT 97
== END 2025-03-24 15:41 | disposition home or self-care (01) ==
PROVIDERS: Registered Nurse Emergency; Emergency Provider Student in an Organized Health Care Education/Training Program; PCP Nurse Practitioner Family
DX: I49.9 Cardiac arrhythmia, unspecified (principal); R13.10 Dysphagia, unspecified; R00.2 Palpitations; R13.12 Dysphagia, oropharyngeal phase; R10.2 Pelvic and perineal pain
CPT/HCPCS: 36415; 80053; 83735; 84443; 84484; 84702; 85025; 85610; 93005; 99283; 99284

== ENCOUNTER → 2025-03-24 13:04 | Outpatient (BNV) | payer OTHER, SELFPAY | PROVIDERS: Emergency Provider Student in an Organized Health Care Education/Training Program; PCP Nurse Practitioner Family; Visit Provider Internal Medicine Cardiovascular Disease | DX: R94.31 Abnormal electrocardiogram [ECG] [EKG] (principal); R00.2 Palpitations | CPT/HCPCS: 93010 ==